=== PATIENT | female | born 2000 | race Caucasian/White ===

== ENCOUNTER → 2023-07-30 | Outpatient (CLI) | payer OTHER ==
[2023-07-30 15:08] LABS: HEMATOCRIT 38.5 % (36.0-47.0); HEMOGLOBIN 13.1 g/dl (12.0-15.5); MEAN CORPUSCULAR HEMOGLOBIN 29.7 pg (27.0-33.0); MEAN CORPUSCULAR VOLUME 87.3 fl (80.0-96.0); PLATELET COUNT, AUTOMATED 225 10^3/uL (150-450); RED BLOOD COUNT 4.41 10^6/uL (4.00-5.40); WHITE BLOOD COUNT 8.5 10^3/uL (4.0-10.0)
[2023-07-30 15:58] LABS: HIV 1&2 SCREEN NEGATIVE (NEGATIVE)
[2023-07-30 16:07] LABS: HEPATITIS C VIRUS ABY INDEX < 0.02 INDEX (<0.8)
== END ==
LOC: M PLALAB 11:25
PROVIDERS: ATTEND Specialist
DX: Z34.01 Encounter for supervision of normal first pregnancy, first trimester (principal)

== ENCOUNTER → 2023-09-18 | Outpatient (CLI) | payer OTHER | LOC: M RAD 07:45 | PROVIDERS: ATTEND Obstetrics & Gynecology | DX: Z34.01 Encounter for supervision of normal first pregnancy, first trimester (principal) ==

== ENCOUNTER 2023-10-10 22:10 | Outpatient (CLI) | payer OTHER ==
[~2023-10-10] VITALS: Ht 160 cm; Wt 78.0 kg
[2023-10-10 23:50] VITALS: BP 112/56
[2023-10-11] MEDS ORDERED: UNIS25TA3 PO (00:09)
[2023-10-11 01:13] LABS: Trichomonas vaginalis (AMP) NOT DETECTED (NEGATIVE)
[2023-10-11 01:37] LABS: GC DNA AMPLIFICATION NEGATIVE (NEGATIVE)
== END 2023-10-10 23:55 | disposition home or self-care (01) ==
LOC: M LDO 22:10
PROVIDERS: ATTEND Advanced Practice Midwife
DX: O26.892 Other specified pregnancy related conditions, second trimester (principal); O09.292 Supervision of pregnancy with other poor reproductive or obstetric history, second trimester; R10.2 Pelvic and perineal pain; Z3A.22 22 weeks gestation of pregnancy; Z86.19 Personal history of other infectious and parasitic diseases; Z91.410 Personal history of adult physical and sexual abuse
CPT/HCPCS: 59025; 87661; 87810; 87850; G0463

== ENCOUNTER → 2023-10-16 | Outpatient (CLI) | payer OTHER ==
[~2023-10-16] MED LIST: UNIS25TA3 PO
== END ==
LOC: M WHC 13:17
PROVIDERS: ATTEND Obstetrics & Gynecology
DX: Z34.92 Encounter for supervision of normal pregnancy, unspecified, second trimester (principal); Z3A.23 23 weeks gestation of pregnancy

== ENCOUNTER 2023-10-25 10:16 | Outpatient (CLI) | payer OTHER ==
[~2023-10-25] VITALS: Ht 160 cm; Wt 78.8 kg
[2023-10-25] MEDS ORDERED: METOCLOPRAMIDE 10MG TAB PO PRN (10:40)
[2023-10-25 10:48] VITALS: BP 118/63
[2023-10-25] MEDS ORDERED: PRENTAB9 PO (10:54)
[2023-10-25] MEDS ORDERED: HOME MED LIST COMPLETE! XX SCH (10:55)
[2023-10-25] MEDS: ONDANSETRON 4MG TAB PO PRN (11:45)
[2023-10-25 11:55] LABS: APPEARANCE, URINE HAZY (CLEAR); BACTERIA, URINE AUTO NEGATIVE (NEGATIVE); BILIRUBIN, URINE AUTO NEGATIVE (NEGATIVE); BLOOD, URINE BLOOD NEGATIVE (NEGATIVE); COLOR, URINE YELLOW (YELLOW); GLUCOSE, URINE (UA) AUTO NEGATIVE (NEGATIVE); KETONE, URINE AUTO NEGATIVE (NEGATIVE); LEUKOCYTE ESTERASE, URINE AUTO NEGATIVE (NEGATIVE); MUCUS, URINE SMALL (NEGATIVE); NITRITE, URINE AUTO NEGATIVE (NEGATIVE); PROTEIN, URINE AUTO NEGATIVE (NEGATIVE); RBC, URINE AUTO 0 /HPF (0-3); SPECIFIC GRAVITY URINE AUTO 1.017 (1.002-1.035); SQUAMOUS EPITHELIAL CELL UR AU 1 /HPF (0-6); UROBILINOGEN, URINE AUTO 0.2 mg/dL (0.0-2.0); WBC, URINE AUTO 0 /HPF (0-3)
[2023-10-25 12:53] VITALS: BP 97/52
== END 2023-10-25 13:01 | disposition home or self-care (01) ==
LOC: M LDO 10:16
PROVIDERS: ATTEND Obstetrics & Gynecology
DX: O21.8 Other vomiting complicating pregnancy (principal); Z86.32 Personal history of gestational diabetes; Z3A.24 24 weeks gestation of pregnancy
CPT/HCPCS: 59025; 81001; 87086; 87486; 87581; 87633; 87798; G0463

== ENCOUNTER → 2023-10-31 | Outpatient (CLI) | payer OTHER ==
[~2023-10-31] MED LIST changes: +PRENTAB9 PO
[2023-10-31 17:55] LABS: HEMATOCRIT 33.4 % (36.0-47.0); HEMOGLOBIN 11.4 g/dl (12.0-15.5); MEAN CORPUSCULAR HEMOGLOBIN 30.9 pg (27.0-33.0); MEAN CORPUSCULAR HGB CONC 34.1 g/dl (32.0-36.5); MEAN CORPUSCULAR VOLUME 90.5 fl (80.0-96.0); PLATELET COUNT, AUTOMATED 219 10^3/uL (150-450); RED BLOOD COUNT 3.69 10^6/uL (4.00-5.40)
[2023-10-31 19:02] LABS: GC DNA AMPLIFICATION NEGATIVE (NEGATIVE)
== END ==
LOC: M PLALAB 13:58
PROVIDERS: ATTEND Obstetrics & Gynecology
DX: Z34.92 Encounter for supervision of normal pregnancy, unspecified, second trimester (principal)

== ENCOUNTER → 2024-01-15 | Outpatient (REF) | payer OTHER | LOC: M PLALAB 14:57 | PROVIDERS: ATTEND Advanced Practice Midwife | DX: Z34.83 Encounter for supervision of other normal pregnancy, third trimester (principal); Z3A.36 36 weeks gestation of pregnancy ==

== ENCOUNTER 2024-01-28 11:23 | Outpatient (CLI) | payer OTHER ==
[~2024-01-28] VITALS: Ht 160 cm; Wt 85.9 kg
[2024-01-28 11:37] VITALS: BP 114/65
[2024-01-28] MEDS ORDERED: COLA100C5 PO (11:43)
[2024-01-28 13:00] VITALS: BP 108/59
== END 2024-01-28 13:07 | disposition home or self-care (01) ==
LOC: M LDO 11:23
PROVIDERS: ATTEND Advanced Practice Midwife
DX: O36.8130 Decreased fetal movements, third trimester, not applicable or unspecified (principal); Z86.32 Personal history of gestational diabetes; Z3A.38 38 weeks gestation of pregnancy
CPT/HCPCS: 59025; G0463

== ENCOUNTER 2024-02-10 07:53 | Inpatient (IN) | payer OTHER ==
[2024-02-10] VITALS (18 sets, daily range): BP systolic 100–130; BP diastolic 51–80; O2SAT 95
[~2024-02-10] VITALS: Ht 160 cm; Wt 86.7 kg
[~2024-02-10 07:53] MED LIST changes: +COLA100C5 PO
[2024-02-10 09:51] LABS: HEMATOCRIT 36.8 % (36.0-47.0); HEMOGLOBIN 12.4 g/dl (12.0-15.5); MEAN CORPUSCULAR HEMOGLOBIN 30.5 pg (27.0-33.0); MEAN CORPUSCULAR HGB CONC 33.7 g/dl (32.0-36.5); MEAN CORPUSCULAR VOLUME 90.6 fl (80.0-96.0); PLATELET COUNT, AUTOMATED 164 10^3/uL (150-450); RED BLOOD COUNT 4.06 10^6/uL (4.00-5.40); WHITE BLOOD COUNT 11.1 10^3/uL (4.0-10.0)
[2024-02-10 10:39] LABS: HEPATITIS C VIRUS ABY INDEX < 0.02 INDEX (<0.8)
[2024-02-10] MEDS ORDERED: TRANEXAMIC ACID INJection 1,000 MG in NS 100 ML IV PRN (13:10)
[2024-02-10] MEDS ORDERED: OXYTOCIN DRIP 30 UNITS in IV 1 EA IV PRN (13:10)
[2024-02-10] MEDS ORDERED: CARBOPROST TROMETHAMINE 250 MCG/ML AMP IM PRN (13:10)
[2024-02-10] MEDS: miSOPROStol 50MCG 1/2 TABLET BUC ONE ×2 (14:09→18:10)
[2024-02-10] MEDS: LR 1,000 ML IV SCH (18:44)
[2024-02-10] MEDS: OXYTOCIN DRIP 30 UNITS in IV 1 EA IV SCH (18:44)
[2024-02-11] VITALS (50 sets, daily range): BP systolic 87–136; BP diastolic 48–86; O2SAT 95–98
[2024-02-11] MEDS: CALCIUM CARBONATE 500 MG CHEW U/D PO ONE (03:00)
[2024-02-11] MEDS ORDERED: EPIDURAL/PCA KEYS XX PRN (03:00)
[2024-02-11] MEDS ORDERED: NALOXONE INJ 0.4MG/1ML VIAL IV PRN (03:00)
[2024-02-11] MEDS ORDERED: diphenhydrAMINE 50MG/ML VIAL IV PRN (03:00)
[2024-02-11] MEDS: LACTATED RINGER'S 1000 ML IV PRN (03:12)
[2024-02-11] MEDS: FENTANYL/ROPIVACAINE/NACL BAG 100 ML EPIDURAL SCH (03:39)
[2024-02-11] MEDS: ONDANSETRON 4MG 2ML VIAL IV PRN (03:52)
[2024-02-11] MEDS: ePHEDrine SULFATE 25 MG/5 ML(5MG/ML) SYRINGE IVP PRN (05:26)
[2024-02-11] MEDS: LR 500 ML IV PRN (05:26)
[2024-02-11] MEDS: PRENATAL VITAMINS CHEWABLE TABLET PO SCH (09:00)
[2024-02-11] MEDS: OXYTOCIN DRIP 30 UNITS in IV 1 EA IV PRN (09:15)
[2024-02-11] MEDS: METHYLERGONOVINE MALEATE 0.2MG/ML 1ML VIAL IM PRN (09:22)
[2024-02-11] MEDS ORDERED: DOCUSATE SODIUM 100MG CAPSULE PO PRN (09:35)
[2024-02-11] MEDS ORDERED: ACETAMINOPHEN 500 MG TAB PO PRN (09:35)
[2024-02-11] MEDS ORDERED: ACETAMINOPHEN TAB 650MG DOSE (2X325MG) PO PRN (09:35)
[2024-02-11] MEDS ORDERED: DIBUCAINE 1% OINTMENT 30GM TOP PRN (09:35)
[2024-02-11] MEDS ORDERED: METHYLERGONOVINE MALEATE 0.2 MG TAB PO PRN (09:35)
[2024-02-11] MEDS: OXYTOCIN DRIP 30 UNITS in IV 1 EA IV SCH (09:45)
[2024-02-11] MEDS: IBUPROFEN 600MG TAB PO PRN (18:31)
[2024-02-12 05:55] VITALS: BP 96/52; O2SAT 98
[2024-02-12] MEDS: RHO(D) IMMUNE GLOBULIN/MALTOSE 500MCG(2500IU)/2.2ML VIAL (WINRHO) IM SCH (07:44)
[2024-02-12] MEDS: IBUPROFEN 800 MG TAB PO PRN (10:27)
[2024-02-12] MEDS ORDERED: IBUP80TA PO (15:23)
[2024-02-12] MEDS ORDERED: ACET-683 PO (15:23)
[2024-02-13] MEDS ORDERED: MEASLES,MUMPS,RUBELLA VACCINE INJ (MMR-II) SC.IMMUN ONE (09:00)
== END 2024-02-12 16:30 | disposition home or self-care (01) | DRG 807 ==
LOC: M LDI 07:53 → M OBS 02-11 11:14
PROVIDERS: ADMIT Obstetrics & Gynecology; ATTEND Advanced Practice Midwife
PROC: 3E033VJ Introduction of Other Hormone into Peripheral Vein, Percutaneous Approach (ICD-10-PCS; 2024-02-10)
PROC: 10E0XZZ Delivery of Products of Conception, External Approach (ICD-10-PCS; principal; 2024-02-11)
DX: O48.0 Post-term pregnancy (principal); Z37.0 Single live birth; Z3A.40 40 weeks gestation of pregnancy; Z79.899 Other long term (current) drug therapy

== ENCOUNTER → 2024-09-18 | Outpatient (REF) | payer OTHER ==
[~2024-09-18] MED LIST changes: +ACET-683 PO; +IBUP80TA PO
== END ==
LOC: M LAB REF 15:28
PROVIDERS: ATTEND Physician Assistant
DX: B34.9 Viral infection, unspecified (principal)